=== PATIENT | female | born 1960 | race Caucasian/White ===

== ENCOUNTER 2024-10-17 15:52 | Emergency (ER) | payer MEDICARE, SELFPAY ==
[2024-10-17 15:58] VITALS: BP 155/78; PULSE 83; RESP 17; TEMP 37.3; O2SAT 99; BMI 28.8
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
--- NOTE | 2024-10-17 16:09 | ECG_ITS ---
[employer] Twyxt Test Date: 2024-10-17 Pat Name: Ethel Novak Department: Room: Gender: Female Air Traffic Control Specialist Center: : 1960 Requested By: Tosin Hartmann Order Number: [id number] Reading MD: Measurements Intervals [place] Rate: 76 P: 59 TX: 160 QRS: 47 QRSD: 78 T: 24 QT: 348 QTc: 392 Interpretive Statements SINUS RHYTHM LOW QRS VOLTAGE IN PRECORDIAL LEADS [QRS DEFLECTION < 1.0 mV IN CHEST LEADS] SEPTAL MYOCARDIAL INFARCTION , OF INDETERMINATE AGE [40+ ms Q WAVE IN V1/V2] [email or web address]
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
--- OUTSIDE RECORDS SUMMARY | 2024-10-17 16:27 | XMS_ITS | Encounter Summary ---
Author Organization [facility] Address [address] [place] [address] Care Team Providers Care Technical Administrator Name Role Phone Pcp, Unknown Primary Care Provider Unavailabl e Encounter Details Date Type Department Care Team (Late st Contact Info) Description 10/08/2012 Documentation [facility] [place] [facility] [place] [address] ProviderAshlee MD [address] [place] [address] Social History Tobacco Use Types Packs/Day Years Used Date Smoking Tobacco: Never Assessed Comments Unknown Sex and Gender Information Value Date Recorded Sex Assigned at Not on file Legal Sex Female 3:45 PM EST Gender Identity Not on file Sexual Orientation Not on file documented as of this encounter Plan of Treatment Not on file documented as of this encounter Visit Diagnoses Not on filedocumented in this encounter Care Teams Technical Administrator Relationship Specialty Start Date End Date Pcp, Unknown PCP - General 02/22/21 documented as of this encounter
--- OUTSIDE RECORDS SUMMARY | 2024-10-17 16:27 | XMS_ITS | Encounter Summary ---
Author Organization [facility] Address [address] [place] [address] Care Team Providers Care Ip Paralegal Name Role Phone Pcp, Unknown Primary Care Provider Unavailabl e Encounter Details Date Type Department Care Team (Late st Contact Info) Description 10/08/2012 Documentation [facility] [place] Family Medicine [facility] [place] [address] ProviderAshlee MD [address] [place] [address] Social History Tobacco Use Types Packs/Day Years [...] on filedocumented in this encounter Care Teams Ip Paralegal Relationship Specialty Start Date End Date Pcp, Unknown PCP - General 02/22/21 documented as of this encounter
--- OUTSIDE RECORDS SUMMARY | 2024-10-17 16:27 | XMS_ITS | Encounter Summary ---
Author Organization [facility] Address [address] [place] [address] Care Team Providers Care Fur Clipper Name Role Phone Pcp, Unknown Primary Care Provider Unavailabl e Encounter Details Date Type Department Care Team (Late st Contact Info) Description 09/19/2012 Documentation [facility] [place] [address] ProviderAshlee MD [address] [place] [address] Social History Tobacco Use Types Packs/Day Years [...] on filedocumented in this encounter Care Teams Fur Clipper Relationship Specialty Start Date End Date Pcp, Unknown PCP - General 02/22/21 documented as of this encounter
--- OUTSIDE RECORDS SUMMARY | 2024-10-17 16:27 | XMS_ITS | Clinical Summary ---
Author Organization [facility] Address [address] [place] [address] Care Team Providers Care Fruit Rancher Name Role Phone Pcp, Unknown Primary Care Provider Unavailabl e Allergies Active Allergy Reactions Criticality Noted Date Comments Iodine 02/13/2005 Family History Medical History Relation Name Comments Unknown Child Problem: Unknow n : N Kidney disease Father Problem: Marisol l disease : Y Cause of : Yes Cancer Mother Problem: Cancer : Y Cause of : Yes Diabetes NextGen History Problem: Fam emily history of Diabetes mellitus Hypertension NextGen History Problem: Fam emily history of Hypertension Relation Name Status Comments Child Father Mother NextGen History Social History Tobacco Use Types Packs/Day Years Used Date Smoking Tobacco: Never Assessed Comments Unknown Sex and Gender Information Value Date Recorded Sex Assigned at Not on file Legal Sex Female 3:45 PM EST Gender Identity Not on file Sexual Orientation Not on file Plan of Treatment Health Maintenance Due Date Last Done Comments CT Virtual Colonoscopy 1960 Colonoscopy 1961 Colorectal Cancer Screening 1960 Eye Exam 1960 FOBT (Colorectal Cancer Screening) 1961 Hepatitis C Screening 1961 Mammogram 1961 MMR Vaccines (1 of 1 - Standard series) 1962 DTaP,Tdap,and Td Vaccines (1 - Tdap) 1973 Varicella Vaccines (1 of 2 - 13+ 2-dose series) 1974 Complete Physical 1979 Health Maintenance Reviewed 1979 Lipid Panel 1979 Pap Smear 1982 Clinical Breast Exam 2001 Cologuard (Colorectal Cancer Screening) 2011 Zoster (Shingrix) Vaccines ( 1 of 2) 2011 COVID-19 Vaccine (3 2023-2 5 season) 2023 01/13/2021, 12/16/2020 Influenza Vaccine (#1) 2024 HIB Vaccines Aged Out No longer eligi ble based on patient's age to complete this topic HPV Vaccines Aged Out No longer eligi ble based on patient's age to complete this topic Hepatitis A Vaccines Aged Out No long er eligible based on patient's age to complete this topic IPV Vaccines Aged Out No longer eligi ble based on patient's age to complete this topic Meningococcal Vaccine Aged Out No rosetta pablo eligible based on patient's age to complete this topic Pneumococcal Vaccine: Peds & At-Risk Patients Aged Out No longer eligible b ased on patient's age to complete this topic Care Teams Fruit Rancher Relationship Specialty Start Date End Date Pcp, Unknown PCP - General 02/22/21
--- OUTSIDE RECORDS SUMMARY | 2024-10-17 16:28 | XMS_ITS | Patient Health Record ---
Author Organization [facility] Billing [facility] Address [address] [place] [id number] Care Team Providers Care Collator Name Role Phone Randall Rizo Primary Care Provider KATIE Eldridge Unavailable [phone] Allergies Allergen (clinical drug ingredient) Drug/Non Drug Allergy documented on EMR Reaction Allergy Type Onset Date Status ammonia Ammonia Inhalant (uncoded) Unknown Allergy Active ammonium hydroxide Ammonium Hydroxide (uncoded) Unknown Allergy Active Ammonia Aromatic Unknown Drug Allergy Active Iodine Unknown Drug Allergy Active morphine Morphine Unknown Drug Allergy Active Reason For Referral No Information Social History Tobacco Status: Question Answer Notes Patient is a non tobacco user Problems Problem Type SNOMED Code ICD Code Onset Dates Problem Status W/U Status Risk Notes Problem 52334403 Diabetes mellitus without mention of complication, type II or unspecified type, not stated as uncontrolled (250.00) 4 Active confirmed Problem 623450314 Morbid obesity (278.01) 4 Active confirmed Problem 13142607 Unspecified essential hypertension (401.9) 2 Active confirmed Problem Heart disease (49733603) Unspecified heart disease (429.9) 2 Active confirmed Problem Maintenance of gastric band (385016306) Fitting and adjustment of gastric lap band (V53.51) 3 Active confirmed Problem Body mass index 40+ - severely obese (814541766) Body Mass Index 45.0-49.9, adult (V85.42) 4 Active confirmed Problem Body mass index 40+ - morbidly obese (609672027) Body Mass Index 50.0-59.9, adult (V85.43) 3 Active confirmed Plan Of Treatment No Information Insurance Providers Payer Name Payer Address Payer Phone Subscriber Number Group Number Insured Name Patient Relationship to Insured Coverage Start Date Coverage End Date [employer] [address] [address] [place], [place] [id number] Ethel Sr Self - patient is the insured Medical (General) History Medical History History ICD Code Morbid obesity Pancreatitis Diabetes Surgical History Surgery Date(Month/Year) Conversion of lap band to laparoscopic g astric bypass, OAGB 07/2021 Radical hysterectomy Tonsillectomy Cholecystectomy AGB-Adjustable Gastric Band: Virgilio velazquez MD 2012 Hospitalization History Reason Date(Month/Year) See above surgeries
--- OUTSIDE RECORDS SUMMARY | 2024-10-17 16:28 | XMS_ITS | Clinical Summary ---
Author Organization [facility] Address [address] [place] [address] Care Team Providers Care Baton Twirler Name Role Phone Randall Rizo MD Primary Care Provider [phone] Family History Medical History Relation Name Comments Diabetes Brother 1 Stroke Brother 2 Hypertension Brother 3 Heart attack Brother 4 Peripheral vascular disease Father Other - See Comments Mother Family history of Gallbladder cancer; Relation Name Status Comments Brother 1 Brother 2 Brother 3 Brother 4 Father Mother Social History Tobacco Use Types Packs/Day Years Used Date Smoking Tobacco: Never Alcohol Use Standard Drinks/Week Comments No 0 (1 standard drink = 0.6 oz pur e alcohol) Comments Unknown Sex and Gender Information Value Date Recorded Sex Assigned at Female 03/02/2021 11:07 AM EST Legal Sex Female 9:53 PM EST Gender Identity Not on file Sexual Orientation Not on file Last Filed Vital Signs Vital Sign Reading Time Taken Comments Blood Pressure 136/80 12/15/2019 1:23 PM EDT Pulse 88 04/15/2019 2:02 PM EST Temperature - - Respiratory Rate - - Oxygen Saturation 98% 04/15/2019 2:02 PM EST Inhaled Oxygen Concentration - - Weight 176 kg (387 lb 15.9 oz) 12/15/2019 1:23 P M EDT Height 172.7 cm (5' 8 ) 12/15/2019 1:23 PM EDT Body Mass Index 58.99 12/15/2019 1:23 PM EDT Plan of Treatment Not on file Care Teams Baton Twirler Relationship Specialty Start Date End Date Randall Rizo MD [facility] [address] [place] [address] PCP - General
--- OUTSIDE RECORDS SUMMARY | 2024-10-17 16:28 | XMS_ITS | Encounter Summary ---
Author Organization [facility] Address [address] [place] [address] Care Team Providers Care Corn Press Operator Name Role Phone Pcp, Unknown Primary Care Provider Unavailabl e Encounter Details Date Type Department Care Team (Late st Contact Info) Description 05/12/2005 Documentation [facility] [place] Family Medicine [address] [place] [address] ProviderAshlee MD [address] [place] [address] Social History Tobacco Use Types Packs/Day Years [...] on filedocumented in this encounter Care Teams Corn Press Operator Relationship Specialty Start Date End Date Pcp, Unknown PCP - General 02/22/21 documented as of this encounter
--- OUTSIDE RECORDS SUMMARY | 2024-10-17 16:28 | XMS_ITS | Encounter Summary ---
Author Organization [facility] Address [address] [place] [address] Care Team Providers Care Ornamental Metal Worker Name Role Phone Pcp, Unknown Primary Care Provider Unavailabl e Encounter Details Date Type Department Care Team (Late st Contact Info) Description 05/12/2005 Documentation [facility] [place] [address] [place] [address] ProviderAshlee MD [address] [place] [address] Social History Tobacco Use Types Packs/Day Years [...] on filedocumented in this encounter Care Teams Ornamental Metal Worker Relationship Specialty Start Date End Date Pcp, Unknown PCP - General 02/22/21 documented as of this encounter
--- OUTSIDE RECORDS SUMMARY | 2024-10-17 16:28 | XMS_ITS | Encounter Summary ---
Author Organization [facility] Address [address] [place] [address] Care Team Providers Care Electronic Resources Librarian Name Role Phone Pcp, Unknown Primary Care Provider Unavailabl e Encounter Details Date Type Department Care Team (Late st Contact Info) Description 05/12/2005 [place] [facility] [place] [address] [place] [address] ProviderAshlee MD [address] [place] [address] Social History Tobacco Use Types Packs/Day Years [...] on filedocumented in this encounter Care Teams Electronic Resources Librarian Relationship Specialty Start Date End Date Pcp, Unknown PCP - General 02/22/21 documented as of this encounter
--- OUTSIDE RECORDS SUMMARY | 2024-10-17 16:28 | XMS_ITS | Encounter Summary ---
Author Organization [facility] Address [address] [place] [address] Care Team Providers Care Waxing Machine Operator Name Role Phone Pcp, Unknown Primary Care Provider Unavailabl e Encounter Details Date Type Department Care Team (Late st Contact Info) Description 02/13/2005 Documentation [facility] [place] Family Medicine [address] [place] [address] ProviderAshlee MD [address] [place] [address] Social History Tobacco Use Types Packs/Day Years [...] on filedocumented in this encounter Care Teams Waxing Machine Operator Relationship Specialty Start Date End Date Pcp, Unknown PCP - General 02/22/21 documented as of this encounter
--- OUTSIDE RECORDS SUMMARY | 2024-10-17 16:28 | XMS_ITS | Encounter Summary ---
Author Organization [facility] Address [address] [place] [address] Care Team Providers Care Head Cleaning Porter Name Role Phone Pcp, Unknown Primary Care Provider Unavailabl e Encounter Details Date Type Department Care Team (Late st Contact Info) Description 05/12/2005 Documentation [facility] [place] Family Medicine [address] [place] [address] ProviderAshlee MD [address] [place] [address] Social History Tobacco Use Types Packs/Day Years [...] on filedocumented in this encounter Care Teams Head Cleaning Porter Relationship Specialty Start Date End Date Pcp, Unknown PCP - General 02/22/21 documented as of this encounter
[2024-10-17 16:39] LABS: Hematocrit 41.9 % (36-47); Hemoglobin 13.20 g/dL (11.27-16.99); Mean Corpuscular HGB Conc 31.5 g/dL (30-55); Mean Corpuscular Hemoglobin 29.1 pg (27-33); Mean Corpuscular Volume 92.3 fl (85-98); Nucleated Red Blood Cells % 0 %; Platelet Count 205 10^3/cmm (157-399); Red Blood Count 4.54 10^6/uL (3.85-5.65); White Blood Count 9.80 10^3/uL (3.29-11.43)
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
[2024-10-17 16:59] LABS: INR 0.93 (0.8-1.2); Prothrombin Time 13.10 SECONDS (12.1-14.9)
[2024-10-17 17:00] LABS: Partial Thromboplastin Time 21.9 SECONDS (23.9-36.7)
[2024-10-17 17:04] LABS: Alanine Aminotransferase 30 U/L (0-33); Albumin Level 4.0 g/dL (3.5-5.2); Alkaline Phosphatase 132 U/L (35-105); Blood Urea Nitrogen 19 mg/dL (8-23); Calcium 9.2 mg/dL (8.5-10.5); Carbon Dioxide 24 mmol/L (22-29); Chloride 107 mmol/L (98-107); Creatinine Clr Calc Pharmacy 66.1892; Globulin 2.2 g/dL (1.3-4.6); Glucose 109 mg/dL (65-115); Osmolality Calculated 295 mOsm/kg (285-295); Sodium 141 mmol/L (136-145); Total Protein 6.2 g/dL (6.6-8.7)
[2024-10-17 17:08] LABS: Lactic Sepsis W/Reflex 1.2 mmol/L (0.5-2.2)
[2024-10-17 17:13] LABS: Troponin(5th) Baseline < 6 ng/L (0-10)
[2024-10-17 17:15] LABS: Anion Gap 14.8 (5-19); Aspartate Amino Transferase 38 U/L (0-32); Potassium 4.8 mmol/L (3.5-5.1)
[2024-10-17] MEDS: ondansetron 2 mg/ML SDV 2 mL 4 MG IVP (18:27)
[2024-10-17] MEDS: HYDROmorphone 0.5 MG/0.5 ML INJ 1 MG IVP (18:28)
[2024-10-17 18:52] LABS: Troponin 5 2HR 6.12 ng/L (0-10); Troponin 5 2HR Delta 0.12001 ABS# (0-10)
[2024-10-17 19:25] VITALS: BP 156/77; PULSE 105; O2SAT 98
== END 2024-10-17 19:26 ==
PROVIDERS: Emergency Provider Emergency Medicine
DX: R10.11 Right upper quadrant pain (principal); R07.9 Chest pain, unspecified; S36.113A Laceration of liver, unspecified degree, initial encounter; S27.321A Contusion of lung, unilateral, initial encounter; S80.12XA Contusion of left lower leg, initial encounter; V49.49XA Driver injured in collision with other motor vehicles in traffic accident, initial encounter
CPT/HCPCS: 36415; 70450; 71045; 71250; 72125; 73590; 74176; 80053; 83605; 84484; 85025; 85610; 85730; 93005; 96374; 96375; 99285; J1171; J2405